=== PATIENT | female | born 1950 | race Caucasian/White ===

== ENCOUNTER 2017-05-06 14:31 | Inpatient (IN) | payer MEDICARE ==
[2017-05-06 16:17] LABS: Urine Bacteria Absent (Absent); Urine Bilirubin Negative (Negative); Urine Glucose Negative (Negative); Urine Nitrite Negative (Negative)
[2017-05-06] MEDS ORDERED: cefTRIAXone(*) 1 GM in NS 0.9% 50 ML* 50 ML IVPB ONE (16:48)
[2017-05-06] MEDS ORDERED: Azithromycin IV(*) 500 MG in NS 0.9% 250 ML* 250 ML IVPB ONE (16:49)
[2017-05-06] MEDS ORDERED: Iodixanol* (CONTRAST) 320 MG/ML 100 ML SDV IV ONE (17:17)
--- NOTE | 2017-05-06 17:43 | RAD ---
INDICATION: Fever and leukocytosis. COMPARISON: Comparison is made with a prior chest x-ray study from May 06, 2017 and a prior PET/CT study from April 16, 2016. TECHNIQUE: A CT scan of the chest was performed with intravenous contrast following intravenous injection of 80 ml of Visipaque 320 nonionic contrast. Contiguous axial sections were obtained from the lung apices through the lung bases. Images were reconstructed in the coronal and sagittal planes. FINDINGS: There is a large lobulated mass present in the right middle lobe measuring 3.9 x 6.0 x 5.3 cm in size. In addition there is a pleural-based mass present in the right lower lobe measuring 2.3 x 1.2 x 2.9 cm in size. There is a small infiltrate adjacent to the right middle lobe mass. The lungs are otherwise clear. No pleural effusion is seen. There is a large pretracheal lymph node measuring 1.0 x 1.4 cm in size. No other enlarged mediastinal or hilar lymph nodes are seen. The heart is within normal limits in size. No pericardial effusion is present. The thoracic aorta is normal in caliber. Images of the upper abdomen demonstrate an enlarged heterogeneous liver with a slightly nodular contour. There is a small hypodense lesion in the lateral aspect of the right hepatic lobe measuring 0.5 cm in size which is too small to characterize. No significant focal osseous abnormality is seen. IMPRESSION: 1. LARGE RIGHT MIDDLE LOBE MASS SUSPICIOUS FOR A PRIMARY LUNG CARCINOMA LESS LIKELY METASTATIC DISEASE. 2. SMALLER PLEURAL-BASED MASS IN THE RIGHT LOWER LOBE. 3. ENLARGED MEDIASTINAL LYMPH NODE. 4. ENLARGED HETEROGENEOUS LIVER WITH NODULAR CONTOUR. RECOMMEND DEDICATED CT IMAGING FOR FURTHER EVALUATION. 5. SMALL HYPODENSE HEPATIC LESION POSSIBLY REPRESENTING A CYST ALTHOUGH TOO SMALL TO CHARACTERIZE BY CT. THIS COULD BE FURTHER EVALUATED WITH A RIGHT UPPER QUADRANT ULTRASOUND.
[2017-05-06] MEDS ORDERED: Albuterol/Ipratropium NEB.SOL* Albuterol 2.5 MG/Ipratropium 0.5 MG 3 ML INH PRN (18:13)
[2017-05-06] MEDS: NS 0.9% 1000 ML* 1,000 ML IV SCH (18:33)
[2017-05-06] MEDS: Acetaminophen TAB* 325 MG PO PRN (18:33)
[2017-05-06] MEDS: oxyCODONE/Acetamin 5/325 MG* TAB PO PRN (20:00)
[2017-05-06] MEDS: oxyCODONE TAB* 5 MG TAB PO PRN (20:01)
[2017-05-06] MEDS ORDERED: Ketorolac INJ* 15 MG/ML 1 ML VIAL IM ONE (20:05)
[2017-05-06] MEDS: buPROPion TAB* 100 MG PO SCH (21:37)
[2017-05-06] MEDS: Atorvastatin* 40 MG TAB PO SCH (21:41)
[2017-05-06] MEDS: Heparin VIAL(*) 5000 UNITS/ML VIAL (FIVE THOUSAND) SUBCUT SCH (21:43)
--- NOTE | 2017-05-06 23:36 | HP ---
CC: Dr. Aceves; Dr. Sands; Dr. Saunders * HISTORY AND PHYSICAL: DATE OF ADMISSION: 05/06/17 PRIMARY CARE PROVIDER: Dr. Aceves. CHIEF COMPLAINT: Feeling unwell, sent by primary care provider. HISTORY OF PRESENT ILLNESS: Ms. Patrick Monique is a 66-year-old female with history of squamous cell tongue cancer, status post radiation and chemotherapy in January 2015 and 2015, who stated that she was treated for UTI 2 weeks ago with Bactrim. She stated that she felt weak and had developed urinary frequency, but no dysuria. She was seen by someone at [facility]gent [facility] and prescribed total course of 7 days of Bactrim. After 5 days of taking Bactrim, she felt more nauseated and redeveloped fevers. At that point, she stopped Bactrim and went to see a provider at Urgent Care again. Then, she was given 3 days' worth of ciprofloxacin. She saw Dr. Aceves on 05/05/17. Dr. Aceves prescribed her an additional course of ciprofloxacin and asked for the patient to get blood work and portable chest x-ray, which was obtained today. The patient noted to have marked leukocytosis with white blood cell count of 19,000. The patient's ESR is 120 and C-reactive protein of . She also was noted to have at least 4- cm right middle lobe mass on chest x-ray. Dr. Aceves's office sent the patient to the ED for further evaluation. Here, the patient's temperature was 102.2. She is slightly hyponatremic. She complains of no shortness of breath, but she noted that she has had dry cough for the past several weeks. Her appetite had been poor and due to intermittent nausea, she lost "a couple of pounds." She still complains of urinary frequency and her urine looks darker than usual but denies hematuria. She is going to be placed on admission with a diagnosis of pneumonia. PAST MEDICAL HISTORY: 1. History of squamous cell tongue cancer, status post radiation and chemotherapy in the years of 2014 and 2015. 2. History of acute renal failure after chemotherapy that resolved. 3. History of depression. 4. Gastroesophageal reflux disease. 5. Dyslipidemia. 6. Hypertension. 7. Hypothyroidism. 8. History of C4-C5 herniation, status post surgery in 2010. 9. History of PEG tube placement and reversal during her cancer therapy. 10. History of tubal ligation. MEDICATIONS: Include: 1. Lipitor 40 mg daily. 2. Toprol-XL 50 mg daily. 3. Levothyroxine 125 mcg daily. 4. Wellbutrin 200 mg b.i.d. 5. Cymbalta 90 mg daily. 6. Acetaminophen with oxycodone /325 one tablet up to 4 times a day p.r.n. 7. Omeprazole 20 mg daily. At home, she also was prescribed ciprofloxacin 500 mg twice a day that she had been taking for the past 4 days. ALLERGIES: Included BEE STINGS for which she uses EpiPen as needed. FAMILY HISTORY: Positive for brother with glioblastoma multiforme. SOCIAL HISTORY: The patient is retired. Her surrogate is her , Hema Monique. SOCIAL HISTORY: She denies any alcohol, tobacco, or drug use. She smokes marijuana. REVIEW OF SYSTEMS: Please see history of present illness. All the remaining 14 systems were reviewed with the patient and were otherwise negative. PHYSICAL EXAMINATION GENERAL: The patient is a very pleasant 66-year-old female, who is in no acute distress. Alert and oriented x3. VITAL SIGNS: Blood pressure 158/75, heart rate of 130 and regular, respiratory rate 18, oxygen saturation 95% on room air, temperature 102.2. HEENT: Head is atraumatic, normocephalic. Eyes: Pupils are equal, reactive to light and accommodation. Oropharynx clear. Mucosa dry. NECK: Supple. No JVD, no bruits bilaterally. RESPIRATORY: Clear to auscultation bilaterally. CARDIOVASCULAR: Regular rate and rhythm. No murmur. ABDOMEN: Soft, nontender. Bowel sounds present in all 4 quadrants. EXTREMITIES: There is no edema. Pulses +2 bilaterally. No clubbing or cyanosis. NEURO: Speech clear. Cranial nerves II through XII are grossly intact. Motor strength is 5/5 bilaterally. DIAGNOSTIC STUDIES/LAB DATA: Included sodium of 129, potassium of 4.7, chloride 91, carbon dioxide 28, BUN 12, creatinine 1.15 which is consistent with prior. The patient's liver function tests were unremarkable. Alkaline phosphatase is elevated to 110. C-reactive protein of 317. White blood count of 19.9, hemoglobin of 10.1, hematocrit of 31, and platelets of 477. Urinalysis showed cloudy urine, +2 protein, +1 ketones, +2 blood, +3 esterase, + 2 white blood cells, and +3 red blood cells, but no bacteria noted and no nitrites noted. The patient's urine cultures obtained on 05/05/[address] of chest obtained with IV contrast, impression: "Large right middle lobe mass suspicious for primary lung carcinoma, less likely metastatic disease. Smaller pleural based mass in the right lower lobe. Enlarged mediastinal lymph nodes. Enlarged heterogeneous liver with nodular contour to it. Recommended to get a CT imaging for further evaluation. Small hypodense hepatic lesion possibly representing cysts that are too small to characterize by CT. This could be further evaluated with a right upper quadrant ultrasound." ASSESSMENT AND PLAN: 1. In regards to the patient's fever and marked leukocytosis, at this point, the patient appears to have most likely postobstructive pneumonia from the right lower lobe. The patient is going to be continued on ceftriaxone and azithromycin started in the ED. Urine legionella and Strep pneumo antigens are going to be obtained as well as blood cultures. The patient is going to be aggressively hydrated. 2. In regards to the patient's slightly elevated creatinine, it appears to be the patient's baseline. 3. For her depression, her Wellbutrin as well as Cymbalta is going to be continued. 4. For the patient's hypertension, metoprolol is going to be continued. 5. For dyslipidemia, atorvastatin is going to be continued. 6. For DVT prophylaxis, the patient is going to be placed on heparin subcutaneously. 7. In regards to right middle lobe mass, I discussed this with Dr. Saunders, who recommended CT of abdomen and pelvis with 3-phase scan of the liver. Dr. Saunders will see the patient in consultation in the morning. 8. The patient's code status is full. TIME SPENT: Approximately 65 minutes was spent on admission of this patient. More than half that time was spent [id number] with the patient during the interview, physical exam, and counseling. [id number]/[facility] #: [id number] [facility]
[2017-05-07] MEDS: NS 0.9% 1000 ML* 1,000 ML IV SCH ×3 (02:21→18:55)
[2017-05-07] MEDS: Acetaminophen TAB* 325 MG PO PRN (04:07)
[2017-05-07] MEDS ORDERED: Acetaminophen SUPP* 650 MG SUPP PR PRN (04:12)
[2017-05-07] MEDS: Ondansetron INJ* 2 MG/ML VIAL IV SCH ×5 (04:31→20:46)
[2017-05-07 06:15] LABS: Hematocrit 27 % (35-47); Mean Corpuscular HGB Conc 33 g/dl (31-36); Mean Corpuscular Hemoglobin 28 pg (27-31); Mean Corpuscular Volume 85 fL (80-97); Mean Platelet Volume 6 um3 (7.4-10.4); Red Blood Count 3.21 10^6/ul (4.0-5.4); Red Cell Distribution Width 14 % (10.5-15)
[2017-05-07] MEDS: Levothyroxine TAB* 125 MCG TAB PO SCH (06:27)
[2017-05-07 06:29] LABS: BUN/Creatinine Ratio 10.5 (8-20); Calcium 9.2 mg/dL (8.6-10.3); EGFR African American 75.2 (>60); EGFR Non-African American 58.5 (>60); Potassium 3.6 mmol/L (3.5-5.0)
[2017-05-07] MEDS: Heparin VIAL(*) 5000 UNITS/ML VIAL (FIVE THOUSAND) SUBCUT SCH (07:16)
[2017-05-07] MEDS: Metoprolol Succinate XL TAB* 50 MG PO SCH ×2 (08:47→09:06)
[2017-05-07] MEDS: buPROPion TAB* 100 MG PO SCH ×2 (08:47→13:14)
[2017-05-07] MEDS: Omeprazole CAP* 20 MG PO SCH (08:47)
[2017-05-07] MEDS: oxyCODONE/Acetamin 5/325 MG* TAB PO PRN ×3 (08:47→18:18)
[2017-05-07] MEDS: oxyCODONE TAB* 5 MG TAB PO PRN ×3 (08:47→18:18)
[2017-05-07] MEDS ORDERED: DULoxetine DR CAP* 30 MG CAP.DR PO SCH (09:00)
--- NOTE | 2017-05-07 09:05 | PN ---
Progress Note - Progress Note Date of Service: 05/07/17 SOAP: Subjective: []Had been feeling well. Developed summer cold and then cough. Fevers started about 2 weeks [employer]. Up to 103. Seen at [facility] and thought to be UTI. Brief course of antibiotics X 2 with relief of symptoms for several days followed by fevers. PCP with CXR, mass. ER CT shows large area of consolidation RLL anteriorly, second 2 cm posterior area question of pleural of in lung. No mediastinal LAD, no bone, liver or adrenal lesions. Temp 103, labs consistent with acute pneumonia. Acetaminophen (Tylenol Tab*) 650 mg PO Q4H PRN PRN Reason: FEVER/PAIN Last Admin: 05/06/17 18:33 Dose: 650 mg Acetaminophen (Tylenol Supp*) 650 mg IA Q6H PRN PRN Reason: FEVER/PAIN Last Admin: 05/07/17 04:24 Dose: 650 mg Albuterol/Ipratropium (Duoneb (Albuterol 2.5 Mg/Ipratropium 0.5 Mg)) 1 neb INH RT.[id number] AWAKE PRN PRN Reason: sob/wheexing Atorvastatin Calcium (Lipitor*) 40 mg PO BEDTIME [facility] Last Admin: 05/06/17 21:41 Dose: 40 mg Bupropion HCl (Wellbutrin Tab*) 200 mg PO BID [facility] Last Admin: 05/07/17 08:47 Dose: 200 mg Duloxetine HCl (Cymbalta Cap*) 90 mg PO DAILY [facility] Last Admin: 05/07/17 08:47 Dose: 60 mg Heparin Sodium (Porcine) (Heparin Vial(*)) 5,000 units SUBCUT Q8HR [facility] Last Admin: 05/07/17 07:16 Dose: Not Given Sodium Chloride (Ns 0.9% 1000 Ml*) 1,000 mls @ 125 mls/hr IV PER RATE [facility] Last Admin: 05/07/17 02:21 Dose: 125 mls/hr Ceftriaxone Sodium 1,000 mg/ (Sodium Chloride) 50 mls @ 200 mls/hr IVPB Q24H [facility] Azithromycin 500 mg/ Sodium (Chloride) 250 mls @ 250 mls/hr IVPB Q24H [facility] Levothyroxine Sodium (Synthroid Tab*) 125 mcg PO 0600 [facility] Last Admin: 05/07/17 06:27 Dose: 125 mcg Metoprolol Succinate (Toprol Xl Tab*) 50 mg PO DAILY [facility] Last Admin: 05/07/17 08:47 Dose: 50 mg Omeprazole (Prilosec Cap*) 20 mg PO DAILY [facility] Last Admin: 05/07/17 08:47 Dose: 20 mg Ondansetron HCl (Zofran Inj*) 4 mg IV Q4H [facility] Last Admin: 05/07/17 08:48 Dose: 4 mg Oxycodone HCl (Roxycodone Tab*) 5 mg PO QID PRN PRN Reason: PAIN Last Admin: 05/07/17 08:47 Dose: 5 mg Oxycodone/Acetaminophen (Percocet 5/325 Tab*) 1 tab PO QID PRN PRN Reason: PAIN Last Admin: 05/07/17 08:47 Dose: 1 tab Objective: [] Vital Signs Temp Pulse Resp BP Pulse Ox 99.0 F 108 20 130/65 97 05/07/17 07:44 05/07/17 07:44 05/07/17 08:47 05/07/17 07:44 05/07/17 07:44 Tmax 103 HEENT - pale, no lesions, no supraclavicular LAD, No axillary LAD CT post, some e-a changes right lower lobe Abd NT, ND +BS and no HSM Ext no C/C/E WBC 19,000, Hgb 9.0 MCV 85 Assessment: []66 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 Had been disease free since that time. Now presents with acute pneumonia and question of post obstructive lesion. CT without other disease but the RLL lesion has mass like appearance. Ddx: consolidated pneumonia, underlying bronchial lesion causing obstruction. Discussed with the patient that we can not determine at this time if the has a recurrent or new cancer but will need to continue evaluation as or after we treat pneumonia. Plan: []1. Continue antibiotics and cover post obstructive disease. 2. Agree with follow up CT with 3 phase liver study. 3. If improving clinically on antibiotics will re-scan in 2 -3 weeks and consider bronchoscope. 4. Will continue to follow during hospitalization.
--- NOTE | 2017-05-07 13:13 | ED ---
Giuseppe Corral Nikita, scribed for Johann Rosales MD on 05/06/17 at 1521 . HPI Febrile Illness - HPI Summary HPI Summary: Pt is a 66 y/o F who presents to ED c/o fever. Reports her temperature has been between 102 and 103. Additionally c/o nonproductive cough. Sx aggravated and alleviated by nothing. Pt reports she started experiencing UTI sx consisting of urinary frequency and hematuria 2 weeks ago, so she went to urgent care and was prescribed Bactrim, which she took for 4 days and the UTI "responded to it" but she had to stop the Abx due to poor side effects. She returned to urgent care and was given an Rx for Cipro which she is still taking which is improving UTI sx, but she continues to experience fever. She was seen by her PCP, Dr. Aceves, yesterday who did a CXR, lab work and per pt, reported her urine was cloudy with RBC and WBC. - History of Current Complaint Chief Complaint: EDFever Time Seen by Provider: 05/06/17 15:06 Hx Obtained From: Patient Onset/Duration: Still Present Temperature: 103 F Current Severity: Mild Pain Intensity: 3 Pain Scale Used: 0-10 Numeric Aggravating Factors: Nothing Alleviating Factors: Nothing Associated Signs and Symptoms: Cough - nonproductive - Additional Pertinent History Primary Care Physician: [id number] - Allergy/Home Medications Allergies/Adverse Reactions: Allergies Allergy/AdvReac Type Severity Reaction Status Date / Time Bee Venom Allergy Anaphylatic Verified 01/05/16 17:38 Shock Home Medications: Home Medications Atorvastatin* [Lipitor*] 40 mg PO BEDTIME 05/06/17 [History Confirmed 05/06/17] Ciprofloxacin TAB* [Cipro 500 MG TAB*] 500 mg PO BID 05/06/17 [History Confirmed 05/06/17] DULoxetine DR CAP* [Cymbalta CAP*] 30 mg PO DAILY 05/06/17 [History Confirmed ] Epinephrine [Epipen 2-Juan Carlos] 0.3 mg IM ONCE PRN 05/06/17 [History Confirmed ] Levothyroxine TAB* [Synthroid TAB*] 125 mcg PO DAILY 05/06/17 [History Confirmed 05/06/17] Metoprolol Succinate XL TAB* [Toprol XL TAB*] 50 mg PO DAILY 05/06/17 [History Confirmed 05/06/17] oxyCODONE/Acetamin 10/325(NF) [Percocet 10/325 (NF)] 1 tab PO QID PRN 05/06/17 [ History Confirmed 05/06/17] DULoxetine DR SMITH* [Cymbalta CAP*] 60 mg PO DAILY 05/07/17 [History Confirmed ] PMH/Surg Hx/FS Hx/Imm Hx Endocrine/Hematology History: Reports: Hx Thyroid Disease - HYPOTHYROID Denies: Hx Diabetes Cardiovascular History: Reports: Hx Hypercholesterolemia, Hx Hypertension - ON MEDICATION FOR Denies: Hx Pacemaker/ICD Respiratory History: Denies: Hx Asthma GI History: Reports: Hx Gastroesophageal Reflux Disease, Other GI Disorders - ESOPHAGEAL SPASM HISTORY History: Denies: Hx Dialysis, Hx Renal Disease Musculoskeletal History: Reports: Hx Arthritis - HANDS, NECK, Other Musculoskeletal History - CERVICAL DISC DISEASE Sensory History: Reports: Hx Contacts or Glasses, Hx Hearing Aid Opthamlomology History: Reports: Hx Contacts or Glasses Neurological History: Reports: Hx Migraine - HISTORY OF Psychiatric History: Reports: Hx Anxiety - ON MEDICATION FOR, Hx Depression - ON MEDICATION FOR Denies: Hx Panic Disorder - Cancer History Cancer Type, Location and Year: tongue CA - Surgical History Surgery Procedure, Year, and Place: implanted port, PEG tube insertion Hx Anesthesia Reactions: No Infectious Disease History: Denies: Traveled Outside the [place] in Last 30 Days - Family History Known Family History: Positive: Hypertension - Father, Diabetes - Mother had age onset DM. - Social History Alcohol Use: None Substance Use Type: Reports: None Substance Use Comment - Amount & Last Used: MARIJUANA-SOME PER PATIENT Hx Tobacco Use: No Smoking Status (MU): Never Smoked Tobacco Review of Systems Positive: Fever Positive: frequency - urinary frequency - improved by Abx, hematuria - improved by Abx All Other Systems Reviewed And Are Negative: Yes Physical Exam Triage Information Reviewed: Yes Vital Signs On Initial Exam: Initial Vitals Temp Pulse Resp BP 99.6 F 135 20 116/70 05/06/17 14:35 05/06/17 14:35 05/06/17 14:35 05/06/17 14:35 Vital Signs Reviewed: Yes Appearance: Positive: Well-Appearing, No Pain Distress Skin: Positive: Warm, Skin Color Reflects Adequate Perfusion, Dry Head/Face: Positive: Normal Head/Face Inspection Eyes: Positive: Normal ENT: Positive: Normal ENT inspection Neck: Positive: Supple, Nontender Respiratory/Lung Sounds: Positive: Clear to Auscultation, Breath Sounds Present Cardiovascular: Positive: Tachycardia, Other - Hyperdynamic heart sounds Abdomen Description: Positive: Nontender, Soft Bowel Sounds: Positive: Present Musculoskeletal: Positive: Normal Neurological: Positive: Normal Psychiatric: Positive: Normal, Affect/Mood Appropriate Diagnostics - Vital Signs Vital Signs Temp Pulse Resp BP 05/06/17 14:35 99.6 F 135 20 116/70 - Laboratory Lab Results: Lab Results 05/06/17 Range/Units 15:58 Urine Color Yellow Urine Appearance Cloudy Urine pH 6.0 (5-9) Ur Specific Mullens 1.016 (1.010-1.030) Urine Protein 2+(100 mg/dl) H (Negative) Urine Ketones 1+ H (Negative) Urine Blood 2+ H (Negative) Urine Nitrate Negative (Negative) Urine Bilirubin Negative (Negative) Urine Urobilinogen Negative (Negative) Ur Leukocyte Esterase 3+ H (Negative) Urine WBC (Auto) 2+(11-20/hpf) H (Absent) Urine RBC (Auto) 3+(>10/hpf) H (Absent) Ur Squamous Epith Cells Present H (Absent) Urine Bacteria Absent (Absent) Urine Glucose Negative (Negative) Result Diagrams: 05/07/17 06:02 05/07/17 06:02 Lab Statement: Any lab studies that have been ordered have been reviewed, and results considered in the medical decision making process. - CT Chest CT CT Interpretation: Positive (See Comments) - 1. LARGE RIGHT MIDDLE LOBE MASS SUSPICIOUS FOR A PRIMARY LUNG CARCINOMA LESS LIKELY METASTATIC DISEASE. 2. SMALLER PLEURAL-BASED MASS IN THE RIGHT LOWER LOBE. 3. ENLARGED MEDIASTINAL LYMPH NODE. 4. ENLARGED HETEROGENEOUS LIVER WITH NODULAR CONTOUR. RECOMMEND DEDICATED CT IMAGING FOR FURTHER EVALUATION. 5. SMALL HYPODENSE HEPATIC LESION POSSIBLY REPRESENTING A CYST ALTHOUGH TOO SMALL TO CHARACTERIZE BY CT. THIS COULD BE FURTHER EVALUATED WITH A RIGHT UPPER QUADRANT ULTRASOUND. CT Interpretation Completed By: Radiologist Course/Dx - Course Course Of Treatment: I am conceerned that Ms. Patrick Monique has a post- obstructive pneumonia. She has been given IV antibiotics and will need to be admitted for further W/U. - Diagnoses Provider Diagnoses: Fever, Pneumonia - Provider Notifications Discussed Care Of Patient With: Lynn Mooney Time Discussed With Above Provider: 16:47 Instructed by Provider To: Other - Accepted pt for admission. Discharge - Discharge Plan Condition: Stable Disposition: ADMITTED TO [facility] The documentation as recorded by the Giuseppe siddiqi Nikita accurately reflects the service I personally performed and the decisions made by me, Johann Rosales MD.
[2017-05-07] MEDS: DULoxetine DR CAP* 30 MG CAP.DR PO SCH (13:14)
--- NOTE | 2017-05-07 14:47 | PN ---
Subjective Date of Service: 05/07/17 Interval History: Pt continued to be febrile at night. Now afebrile. Feels well, but had poor appetite, denies SOB, cough. Happy since as per pt DR. Saunders told pt that the lesion in her lung is likely pneumonia related Objective Active Medications: Acetaminophen (Tylenol Tab*) 650 mg PO Q4H PRN PRN Reason: FEVER/PAIN Last Admin: 05/06/17 18:33 Dose: 650 mg Acetaminophen (Tylenol Supp*) 650 mg [place] Q6H PRN PRN Reason: FEVER/PAIN Last Admin: 05/07/17 04:24 Dose: 650 mg Albuterol/Ipratropium (Duoneb (Albuterol 2.5 Mg/Ipratropium 0.5 Mg)) 1 neb INH [id number] AWAKE PRN PRN Reason: sob/wheexing Atorvastatin Calcium (Lipitor*) 40 mg PO BEDTIME [facility] Last Admin: 05/06/17 21:41 Dose: 40 mg Bupropion HCl (Wellbutrin Tab*) 200 mg PO BID@0900,1400 [facility] Last Admin: 05/07/17 13:14 Dose: 200 mg Duloxetine HCl (Cymbalta Cap*) 30 mg PO DAILY@1400 [facility] Last Admin: 05/07/17 13:14 Dose: 30 mg Duloxetine HCl (Cymbalta Cap*) 60 mg PO DAILY@0900 [facility] Ceftriaxone Sodium 1,000 mg/ (Sodium Chloride) 50 mls @ 200 mls/hr IVPB Q24H [facility] Azithromycin 500 mg/ Sodium (Chloride) 250 mls @ 250 mls/hr IVPB Q24H [facility] Sodium Chloride (Ns 0.9% 1000 Ml*) 1,000 mls @ 75 mls/hr IV PER RATE [facility] Levothyroxine Sodium (Synthroid Tab*) 125 mcg PO 0600 [facility] Last Admin: 05/07/17 06:27 Dose: 125 mcg Metoprolol Succinate (Toprol Xl Tab*) 50 mg PO BEDTIME [facility] Omeprazole (Prilosec Cap*) 20 mg PO DAILY [facility] Last Admin: 05/07/17 08:47 Dose: 20 mg Ondansetron HCl (Zofran Inj*) 4 mg IV Q4H [facility] Last Admin: 05/07/17 13:16 Dose: Not Given Oxycodone HCl (Roxycodone Tab*) 5 mg PO QID PRN PRN Reason: PAIN Last Admin: 05/07/17 13:14 Dose: 5 mg Oxycodone/Acetaminophen (Percocet 5/325 Tab*) 1 tab PO QID PRN PRN Reason: PAIN Last Admin: 05/07/17 13:15 Dose: 1 tab Vital Signs 05/06/17 05/06/17 05/06/17 17:00 18:14 18:15 Temperature 102.2 F 102.2 F Pulse Rate 102 131 131 Respiratory 18 18 Rate Blood Pressure 121/60 158/75 158/75 (mmHg) O2 Sat by Pulse 93 95 95 Oximetry 05/06/17 05/06/17 05/06/17 19:39 20:00 20:01 Temperature 102.5 F Pulse Rate 118 Respiratory 18 18 18 Rate Blood Pressure 134/64 (mmHg) O2 Sat by Pulse 97 Oximetry 05/06/17 05/06/17 05/06/17 22:00 22:01 23:51 Temperature 98.0 F Pulse Rate 94 Respiratory 20 20 16 Rate Blood Pressure 114/61 (mmHg) O2 Sat by Pulse 99 Oximetry 05/07/17 05/07/17 05/07/17 04:24 05:48 07:44 Temperature 102.9 F 100.6 F 99.0 F Pulse Rate 128 108 Respiratory 16 17 Rate Blood Pressure 143/73 130/65 (mmHg) O2 Sat by Pulse 93 97 Oximetry 05/07/17 05/07/17 05/07/17 08:47 09:32 10:26 Temperature Pulse Rate Respiratory 20 20 18 Rate Blood Pressure (mmHg) O2 Sat by Pulse Oximetry 05/07/17 05/07/17 05/07/17 10:58 13:14 13:15 Temperature 98.4 F Pulse Rate 99 Respiratory 17 18 20 Rate Blood Pressure 119/56 (mmHg) O2 Sat by Pulse 97 Oximetry 05/07/17 13:17 Temperature 99.6 F Pulse Rate Respiratory Rate Blood Pressure (mmHg) O2 Sat by Pulse Oximetry Oxygen Devices in Use Now: None Appearance: 66 yo F in NAD, aAOx3 Eyes: No Scleral Icterus, PERRLA Ears/Nose/Mouth/Throat: NL Teeth, Lips, Gums, Mucous Membranes Moist Neck: NL Appearance and Movements; NL JVP, Trachea Midline Respiratory: Symmetrical Chest Expansion and Respiratory Effort, Clear to Auscultation Cardiovascular: NL Sounds; No Murmurs; No JVD, RRR Abdominal: NL Sounds; No Tenderness; No Distention Lymphatic: No Cervical Adenopathy Extremities: No Edema, No Clubbing, Cyanosis Skin: No Rash or Ulcers, No Nodules or Sclerosis Neurological: Alert and Oriented x 3, NL Muscle Strength and Tone Result Diagrams: 05/07/17 06:02 05/07/17 06:02 Additional Lab and Data: Lab Results 05/06/17 Range/Units 15:58 Urine Color Yellow Urine Appearance Cloudy Urine pH 6.0 (5-9) Ur Specific [place] 1.016 (1.010-1.030) Urine Protein 2+(100 mg/dl) H (Negative) Urine Ketones 1+ H (Negative) Urine Blood 2+ H (Negative) Urine Nitrate Negative (Negative) Urine Bilirubin Negative (Negative) Urine Urobilinogen Negative (Negative) Ur Leukocyte Esterase 3+ H (Negative) Urine WBC (Auto) 2+(11-20/hpf) H (Absent) Urine RBC (Auto) 3+(>10/hpf) H (Absent) Ur Squamous Epith Cells Present H (Absent) Urine Bacteria Absent (Absent) Urine Glucose Negative (Negative) Microbiology and Other Data: Microbiology 05/06/17 20:12 Legionella Urinary Antigen - Final Urine Negative Legionella Streptococcus pneumoniae Ag Screen - Final Negative S. pneumo Antigen Assess/Plan/Problems-Billing Assessment: 66 yo F with h/o squamous cell ca of tongue, HTN, hypotyroidism, depression, dyslipidemia presents with fevers despite antibiotic tx and dry cough noted to have RML mass. - Patient Problems (1) Pneumonia Comment: ? post obstructive Cont Azithro/Ceftriaxone. WBC's still markedly elevated, but d/w pt that will allow for antibiotics to work over 24h, prior to deciding if coverage needs to be broadened. Legionella, Strep penumo antigens are neg. (2) Lung mass Comment: D/w oncology. It is unclear if the mass is only inflammatory, or if it could be malignancy. Cont to tx with Azithro/Ceftriaxone (3) Depression Comment: cont wellbutrin/cymbalta (4) Hypothyroidism Comment: cont home dose Synthroid (5) Dyslipidemia Comment: cont Lipitor (6) Hyponatremia Comment: continues despite IVF tx, may have an element of SIADH, but due to fever and pneumonia will cont to tx with IVF. (7) DVT prophylaxis Comment: heparin sc (8) Anemia Comment: normocytic, will check iron studies Status and Disposition: Inpatient
[2017-05-07] MEDS ORDERED: cefTRIAXone VIAL(*) 1,000 MG in NS 0.9% 50 ML* 50 ML IVPB SCH (17:00)
[2017-05-07] MEDS ORDERED: Iodixanol* (CONTRAST) 320 MG/ML 100 ML SDV IV ONE (18:04)
[2017-05-07] MEDS: Azithromycin IV(*) 500 MG in NS 0.9% 250 ML* 250 ML IVPB SCH (18:21)
--- NOTE | 2017-05-07 18:23 | RAD ---
CLINICAL HISTORY: Evaluate for metastatic disease COMPARISON: CT of the chest dated May 06, 2017 TECHNIQUE: Multiple contiguous axial CT images were obtained through the abdomen, both before and after the administration of nonionic intravenous contrast. Arterial phase images were obtained through the abdomen. Delayed images were obtained through the abdomen. Coronal and sagittal multiplanar reformations are submitted for review. Oral contrast was administered. FINDINGS: LUNG BASES: Again noted is a mass of the right lower lobe. There is a small right pleural effusion. LIVER: Again noted is low-attenuation lesion of the left lobe of liver. This is too small to definitively characterize. The liver is somewhat heterogeneous in attenuation. BILE DUCTS: There is mild intrahepatic biliary dilatation. The common duct is dilated up to 1.2 cm. GALLBLADDER: The gallbladder is normal, without pericholecystic inflammatory change. PANCREAS: The pancreas is normal, without mass or ductal dilatation. There is no appreciable pancreatic head mass SPLEEN: Normal in size and appearance. UPPER GI TRACT: Evaluation of the gastrointestinal tract is limited by incomplete gastric distention. The upper GI tract is unremarkable. SMALL BOWEL AND MESENTERY: The small bowel is normal in contour, course, and caliber. There is no obstruction or dilatation. COLON: The colon is normal in contour, course, caliber. There is no pericolonic inflammatory change. ADRENALS: Normal bilaterally. KIDNEYS: The kidneys are normal in shape, size, contour, and axis. There is no hydronephrosis or nephrolithiasis. BLADDER: The bladder is smooth in contour. PELVIC ORGANS: The uterus and adnexa are grossly normal for technique. AORTA: The aorta is normal. IVC: Unremarkable LYMPH NODES: There is no lymphadenopathy by size criteria. ABDOMINAL WALL: There is no evidence for abdominal wall hernia. BONES AND SOFT TISSUES: Degenerative changes are noted OTHER: None IMPRESSION: 1. THE LIVER IS HETEROGENEOUS. AGAIN NOTED ARE LOW ATTENUATION HEPATIC PARENCHYMAL LESIONS THAT ARE TOO SMALL TO DEFINITIVELY CHARACTERIZE BUT MAY REPRESENT SMALL CYSTS VERSUS SMALL MENINGIOMAS. CONSIDER CORRELATION WITH ULTRASOUND OF THE LIVER. 2. BILIARY DILATATION. THERE IS NO APPRECIABLE PANCREATIC HEAD MASS. 3. AGAIN NOTED IS A RIGHT LOWER LOBE MASS. THERE IS A SMALL RIGHT PLEURAL EFFUSION.
[2017-05-07] MEDS: Atorvastatin* 40 MG TAB PO SCH (20:45)
[2017-05-07] MEDS ORDERED: Metoprolol Succinate XL TAB* 50 MG PO SCH (21:00)
[2017-05-08] MEDS ORDERED: NS 0.9% 500 ML BAG* 500 ML IV ONE (00:37)
[2017-05-08] MEDS: Acetaminophen TAB* 325 MG PO PRN ×2 (02:05→23:51)
[2017-05-08] MEDS: NS 0.9% 1000 ML* 1,000 ML IV SCH ×2 (02:06→08:13)
[2017-05-08] MEDS: Ondansetron INJ* 2 MG/ML VIAL IV SCH ×6 (02:06→20:26)
[2017-05-08] MEDS: Levothyroxine TAB* 125 MCG TAB PO SCH (06:10)
[2017-05-08] MEDS: oxyCODONE TAB* 5 MG TAB PO PRN ×3 (06:15→14:36)
[2017-05-08] MEDS: oxyCODONE/Acetamin 5/325 MG* TAB PO PRN ×3 (06:16→14:38)
[2017-05-08 06:50] LABS: Corrected Retic Count 0.5 % (0.5-1.5); Hematocrit 26 % (35-47); Hemoglobin 8.4 g/dl (12.0-16.0); Immature Retic Fraction 0.38; Mean Corpuscular HGB Conc 33 g/dl (31-36); Mean Corpuscular Hemoglobin 28 pg (27-31); Mean Corpuscular Volume 85 fL (80-97); Mean Platelet Volume 7 um3 (7.4-10.4); Red Blood Count 3.04 10^6/ul (4.0-5.4); Red Cell Distribution Width 14 % (10.5-15); White Blood Count 18.5 10^3/ul (3.5-10.8)
[2017-05-08 06:58] LABS: Anion Gap 5 mmol/L (2-11); BUN/Creatinine Ratio 9.6 (8-20); Blood Urea Nitrogen 8 mg/dL (6-24); CO2 Carbon Dioxide 27 mmol/L (22-32); Calcium 8.9 mg/dL (8.6-10.3); Chloride 98 mmol/L (101-111); EGFR African American 87.9 (>60); EGFR Non-African American 68.4 (>60); Glucose 101 mg/dL (70-100); Potassium 3.4 mmol/L (3.5-5.0); Sodium 130 mmol/L (133-145)
[2017-05-08 06:59] LABS: Total Iron Binding Capacity 164 mcg/dL (250-450); Transferrin 117 mg/dL (203-362)
[2017-05-08 07:21] LABS: Ferritin 264.3 ng/mL (11-307)
[2017-05-08 07:25] LABS: Folate 15.44 ng/mL (>3.99); Vitamin B12 943 pg/mL (180-914)
[2017-05-08 07:30] LABS: Iron < 15 ug/dL (50-212)
[2017-05-08] MEDS: DULoxetine DR CAP* 60 MG CAP.DR PO SCH (08:12)
[2017-05-08] MEDS: buPROPion TAB* 100 MG PO SCH ×2 (08:12→13:31)
[2017-05-08] MEDS: Omeprazole CAP* 20 MG PO SCH (08:12)
--- NOTE | 2017-05-08 09:57 | PN ---
Progress Note - Progress Note Date of Service: 05/08/17 SOAP: Subjective: []Feeling a little better today. Coughing up more. Still some chest pain. Fever overnight but better. Acetaminophen (Tylenol Tab*) 650 mg PO Q4H PRN PRN Reason: FEVER/PAIN Last Admin: 05/08/17 02:05 Dose: 650 mg Acetaminophen (Tylenol Supp*) 650 mg [place] Q6H PRN PRN Reason: FEVER/PAIN Last Admin: 05/07/17 04:24 Dose: 650 mg Albuterol/Ipratropium (Duoneb (Albuterol 2.5 Mg/Ipratropium 0.5 Mg)) 1 neb INH [id number] AWAKE PRN PRN Reason: sob/wheexing Atorvastatin Calcium (Lipitor*) 40 mg PO BEDTIME [facility] Last Admin: 05/07/17 20:45 Dose: 40 mg Bupropion HCl (Wellbutrin Tab*) 200 mg PO BID@0900,1400 [facility] Last Admin: 05/08/17 08:12 Dose: 200 mg Duloxetine HCl (Cymbalta Cap*) 30 mg PO DAILY@1400 [facility] Last Admin: 05/07/17 13:14 Dose: 30 mg Duloxetine HCl (Cymbalta Cap*) 60 mg PO DAILY@0900 [facility] Last Admin: 05/08/17 08:12 Dose: 60 mg Azithromycin 500 mg/ Sodium (Chloride) 250 mls @ 250 mls/hr IVPB Q24H [facility] Last Admin: 05/07/17 18:21 Dose: 250 mls/hr Sodium Chloride (Ns 0.9% 1000 Ml*) 1,000 mls @ 75 mls/hr IV PER RATE [facility] Last Admin: 05/08/17 08:13 Dose: 75 mls/hr Ceftriaxone Sodium 1,000 mg/ (Sodium Chloride) 50 mls @ 200 mls/hr IVPB 1830 [facility] Levothyroxine Sodium (Synthroid Tab*) 125 mcg PO 0600 [facility] Last Admin: 05/08/17 06:10 Dose: 125 mcg Metoprolol Succinate (Toprol Xl Tab*) 25 mg PO BEDTIME [facility] Omeprazole (Prilosec Cap*) 20 mg PO DAILY [facility] Last Admin: 05/08/17 08:12 Dose: 20 mg Ondansetron HCl (Zofran Inj*) 4 mg IV Q4H [facility] Last Admin: 05/08/17 08:13 Dose: Not Given Oxycodone HCl (Roxycodone Tab*) 5 mg PO QID PRN PRN Reason: PAIN Last Admin: 05/08/17 06:15 Dose: 5 mg Oxycodone/Acetaminophen (Percocet 5/325 Tab*) 1 tab PO QID PRN PRN Reason: PAIN Last Admin: 05/08/17 06:16 Dose: 1 tab Objective: [] Vital Signs Temp Pulse Resp BP Pulse Ox 98.4 F 90 16 119/64 98 05/08/17 07:47 05/08/17 07:47 05/08/17 08:05 05/08/17 07:47 05/08/17 07:47 Tmax 102 HEENT - pale, no lesions, no supraclavicular LAD, No axillary LAD CT post, some e-a changes right lower lobe Abd NT, ND +BS and no HSM Ext no C/C/E WBC increased CT A/P - small liver lesions likely cysts. 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 Had been disease free since that time. Now presents with acute pneumonia and question of post obstructive lesion. CT without other disease but the RLL lesion has mass like appearance. CT A/P w/o disease Ddx: consolidated pneumonia, underlying bronchial lesion causing obstruction. Discussed with the patient that we can not determine at this time if the has a recurrent or new cancer but will need to continue evaluation as or after we treat pneumonia. Plan: []1. Continue antibiotics and cover post obstructive disease. 2. Agree with follow up CT with 3 phase liver study. 3. If improving clinically on antibiotics will re-scan in 2 -3 weeks and consider bronchoscope. 4. Will continue to follow during hospitalization.
[2017-05-08] MEDS ORDERED: NS 0.9% 1000 ML* 1,000 ML IV SCH (12:18)
--- NOTE | 2017-05-08 12:51 | PN ---
Subjective Date of Service: 05/08/17 Interval History: Feels much stronger today. Less cough, swallowed some sputum. Mild R chest pain. No new c/o. Objective Active Medications: Acetaminophen (Tylenol Tab*) 650 mg PO Q4H PRN PRN Reason: FEVER/PAIN Last Admin: 05/08/17 02:05 Dose: 650 mg Acetaminophen (Tylenol Supp*) 650 mg [place] Q6H PRN PRN Reason: FEVER/PAIN Last Admin: 05/07/17 04:24 Dose: 650 mg Albuterol/Ipratropium (Duoneb (Albuterol 2.5 Mg/Ipratropium 0.5 Mg)) 1 neb INH [id number] AWAKE PRN PRN Reason: sob/wheexing Atorvastatin Calcium (Lipitor*) 40 mg PO BEDTIME [facility] Last Admin: 05/07/17 20:45 Dose: 40 mg Bupropion HCl (Wellbutrin Tab*) 200 mg PO BID@0900,1400 [facility] Last Admin: 05/08/17 08:12 Dose: 200 mg Duloxetine HCl (Cymbalta Cap*) 30 mg PO DAILY@1400 [facility] Last Admin: 05/07/17 13:14 Dose: 30 mg Duloxetine HCl (Cymbalta Cap*) 60 mg PO DAILY@0900 [facility] Last Admin: 05/08/17 08:12 Dose: 60 mg Azithromycin 500 mg/ Sodium (Chloride) 250 mls @ 250 mls/hr IVPB Q24H [facility] Last Admin: 05/07/17 18:21 Dose: 250 mls/hr Ceftriaxone Sodium 1,000 mg/ (Sodium Chloride) 50 mls @ 200 mls/hr IVPB 1830 [facility] Sodium Chloride (Ns 0.9% 1000 Ml*) 1,000 mls @ 50 mls/hr IV PER RATE [facility] Levothyroxine Sodium (Synthroid Tab*) 125 mcg PO 0600 [facility] Last Admin: 05/08/17 06:10 Dose: 125 mcg Metoprolol Succinate (Toprol Xl Tab*) 25 mg PO BEDTIME [facility] Omeprazole (Prilosec Cap*) 20 mg PO DAILY [facility] Last Admin: 05/08/17 08:12 Dose: 20 mg Ondansetron HCl (Zofran Inj*) 4 mg IV Q4H [facility] Last Admin: 05/08/17 08:13 Dose: Not Given Oxycodone HCl (Roxycodone Tab*) 5 mg PO QID PRN PRN Reason: PAIN Last Admin: 05/08/17 10:34 Dose: 5 mg Oxycodone/Acetaminophen (Percocet 5/325 Tab*) 1 tab PO QID PRN PRN Reason: PAIN Last Admin: 05/08/17 10:34 Dose: 1 tab Vital Signs 05/07/17 05/07/17 05/07/17 13:14 13:15 13:17 Temperature 99.6 F Pulse Rate Respiratory 18 20 Rate Blood Pressure (mmHg) O2 Sat by Pulse Oximetry 05/07/17 05/07/17 05/07/17 15:15 15:21 18:18 Temperature 99.0 F Pulse Rate 109 Respiratory 20 16 18 Rate Blood Pressure 124/59 (mmHg) O2 Sat by Pulse 97 Oximetry 05/07/17 05/08/17 05/08/17 20:00 00:12 02:00 Temperature 99.7 F 102.4 F Pulse Rate 94 103 Respiratory 18 16 16 Rate Blood Pressure 97/44 128/67 (mmHg) O2 Sat by Pulse 99 99 Oximetry 05/08/17 05/08/17 05/08/17 06:15 06:16 06:19 Temperature 98.7 F Pulse Rate Respiratory 18 18 Rate Blood Pressure (mmHg) O2 Sat by Pulse Oximetry 05/08/17 05/08/17 05/08/17 07:47 08:00 08:04 Temperature 98.4 F Pulse Rate 90 Respiratory 18 18 16 Rate Blood Pressure 119/64 (mmHg) O2 Sat by Pulse 98 Oximetry 05/08/17 05/08/17 05/08/17 08:05 10:34 11:14 Temperature 98.1 F Pulse Rate 89 Respiratory 16 16 18 Rate Blood Pressure 122/59 (mmHg) O2 Sat by Pulse 95 Oximetry Oxygen Devices in Use Now: None Appearance: Alert, sitting up in bed. In good spirits. Looks comfortable. Eyes: No Scleral Icterus Ears/Nose/Mouth/Throat: Clear Oropharnyx, Mucous Membranes Moist Neck: NL Appearance and Movements; NL JVP, No Thyroid Enlargement, Masses Respiratory: Symmetrical Chest Expansion and Respiratory Effort, Clear to Auscultation, Clear to Percussion Cardiovascular: NL Sounds; No Murmurs; No JVD, RRR, No Edema, - Abdominal: NL Sounds; No Tenderness; No Distention, No Hepatosplenomegaly, - Extremities: No Edema, No Clubbing, Cyanosis, - Skin: No Rash or Ulcers, No Nodules or Sclerosis, - Neurological: Alert and Oriented x 3, NL Sensation Result Diagrams: 05/08/17 06:02 05/08/17 06:02 Additional Lab and Data: Lab Results 05/06/17 Range/Units 15:58 Urine Color Yellow Urine Appearance Cloudy Urine pH 6.0 (5-9) Ur Specific [place] 1.016 (1.010-1.030) Urine Protein 2+(100 mg/dl) H (Negative) Urine Ketones 1+ H (Negative) Urine Blood 2+ H (Negative) Urine Nitrate Negative (Negative) Urine Bilirubin Negative (Negative) Urine Urobilinogen Negative (Negative) Ur Leukocyte Esterase 3+ H (Negative) Urine WBC (Auto) 2+(11-20/hpf) H (Absent) Urine RBC (Auto) 3+(>10/hpf) H (Absent) Ur Squamous Epith Cells Present H (Absent) Urine Bacteria Absent (Absent) Urine Glucose Negative (Negative) Microbiology and Other Data: Microbiology 05/06/17 20:12 Legionella Urinary Antigen - Final Urine Negative Legionella Streptococcus pneumoniae Ag Screen - Final Negative S. pneumo Antigen Assess/Plan/Problems-Billing Assessment: 66 yo F with h/o squamous cell ca of tongue, HTN, hypotyroidism, depression, dyslipidemia presents with fevers despite antibiotic tx and dry cough noted to have RML mass. - Patient Problems (1) Pneumonia Current Visit: Yes Status: Acute Code(s): J18.9 - PNEUMONIA, UNSPECIFIED ORGANISM SNOMED Code(s): 716126789 Comment: ?? post obstructive Cont Azithro/Ceftriaxone. WBC's slowly decreasing. Subj better and fever seems better 05/08. Legionella, Strep penumo antigens are neg. (2) Hypothyroidism Current Visit: Yes Status: Acute Code(s): E03.9 - HYPOTHYROIDISM, UNSPECIFIED SNOMED Code(s): 34481453 Comment: TSH 2.91 02/18/17; cont home dose Synthroid (3) Hyponatremia Current Visit: Yes Status: Acute Code(s): E87.1 - HYPO-OSMOLALITY AND HYPONATREMIA SNOMED Code(s): 75372904 Comment: Improving, stop IVF. (4) Head and neck cancer Current Visit: Yes Status: Acute Code(s): C76.0 - MALIGNANT NEOPLASM OF HEAD , FACE AND NECK SNOMED Code(s): 715094921 Comment: Completed chemo and RT 2015, now ODIN. Status and Disposition: Inpatient
[2017-05-08] MEDS: DULoxetine DR CAP* 30 MG CAP.DR PO SCH (13:31)
[2017-05-08] MEDS ORDERED: Acetaminophen TAB* 325 MG PO PRN (15:45)
[2017-05-08] MEDS ORDERED: Acetaminophen TAB* 325 MG ONE (16:01)
[2017-05-08] MEDS: Azithromycin IV(*) 500 MG in NS 0.9% 250 ML* 250 ML IVPB SCH (17:50)
[2017-05-08] MEDS ORDERED: cefTRIAXone VIAL(*) 1,000 MG in NS 0.9% 50 ML* 50 ML IVPB SCH (18:30)
[2017-05-08] MEDS: Atorvastatin* 40 MG TAB PO SCH (20:24)
[2017-05-08] MEDS ORDERED: Metoprolol Succinate XL TAB* 50 MG PO SCH (21:00)
[2017-05-08] MEDS ORDERED: Azithromycin TAB* 250 MG PO SCH (21:00)
[2017-05-09] MEDS: Ondansetron INJ* 2 MG/ML VIAL IV SCH ×3 (00:44→08:06)
[2017-05-09] MEDS: Levothyroxine TAB* 125 MCG TAB PO SCH (06:02)
[2017-05-09] MEDS: oxyCODONE/Acetamin 5/325 MG* TAB PO PRN (06:16)
[2017-05-09] MEDS: oxyCODONE TAB* 5 MG TAB PO PRN (06:16)
[2017-05-09 07:21] VITALS: BP 136/67
[2017-05-09] MEDS: buPROPion TAB* 100 MG PO SCH (08:11)
[2017-05-09] MEDS: Omeprazole CAP* 20 MG PO SCH (08:11)
[2017-05-09] MEDS: DULoxetine DR CAP* 60 MG CAP.DR PO SCH (08:11)
--- NOTE | 2017-05-09 08:39 | PN ---
Subjective Date of Service: 05/09/17 Interval History: Feels good. Dry cough sometimes at night. Anxious to go home. Objective Active Medications: Acetaminophen (Tylenol Tab*) 650 mg PO Q4H PRN PRN Reason: FEVER/PAIN Last Admin: 05/08/17 23:51 Dose: 650 mg Acetaminophen (Tylenol Supp*) 650 mg [place] Q6H PRN PRN Reason: FEVER/PAIN Last Admin: 05/07/17 04:24 Dose: 650 mg Acetaminophen (Tylenol Tab*) 325 mg PO Q4H PRN PRN Reason: PAIN Last Admin: 05/08/17 16:03 Dose: 325 mg Albuterol/Ipratropium (Duoneb (Albuterol 2.5 Mg/Ipratropium 0.5 Mg)) 1 neb INH [id number] AWAKE PRN PRN Reason: sob/wheexing Atorvastatin Calcium (Lipitor*) 40 mg PO BEDTIME [facility] Last Admin: 05/08/17 20:24 Dose: 40 mg Azithromycin (Zithromax Tab*) 500 mg PO Q24H [facility] Last Admin: 05/08/17 20:25 Dose: 500 mg Bupropion HCl (Wellbutrin Tab*) 200 mg PO BID@0900,1400 [facility] Last Admin: 05/09/17 08:11 Dose: 200 mg Duloxetine HCl (Cymbalta Cap*) 30 mg PO DAILY@1400 [facility] Last Admin: 05/08/17 13:31 Dose: 30 mg Duloxetine HCl (Cymbalta Cap*) 60 mg PO DAILY@0900 [facility] Last Admin: 05/09/17 08:11 Dose: 60 mg Ceftriaxone Sodium 1,000 mg/ (Sodium Chloride) 50 mls @ 200 mls/hr IVPB 1830 [facility] Last Admin: 05/08/17 17:12 Dose: 200 mls/hr Levothyroxine Sodium (Synthroid Tab*) 125 mcg PO 0600 [facility] Last Admin: 05/09/17 06:02 Dose: 125 mcg Metoprolol Succinate (Toprol Xl Tab*) 25 mg PO BEDTIME [facility] Last Admin: 05/08/17 20:24 Dose: 25 mg Omeprazole (Prilosec Cap*) 20 mg PO DAILY [facility] Last Admin: 05/09/17 08:11 Dose: 20 mg Ondansetron HCl (Zofran Inj*) 4 mg IV Q4H [facility] Last Admin: 05/09/17 08:06 Dose: Not Given Oxycodone HCl (Roxycodone Tab*) 5 mg PO QID PRN PRN Reason: PAIN Last Admin: 05/09/17 06:16 Dose: 5 mg Oxycodone/Acetaminophen (Percocet 5/325 Tab*) 1 tab PO QID PRN PRN Reason: PAIN Last Admin: 05/09/17 06:16 Dose: 1 tab Vital Signs 05/08/17 05/08/17 05/08/17 10:34 11:14 12:34 Temperature 98.1 F Pulse Rate 89 Respiratory 16 18 16 Rate Blood Pressure 122/59 (mmHg) O2 Sat by Pulse 95 Oximetry 05/08/17 05/08/17 05/08/17 14:36 14:38 15:46 Temperature 101.1 F Pulse Rate 91 Respiratory 20 18 18 Rate Blood Pressure 110/68 (mmHg) O2 Sat by Pulse 94 Oximetry 05/08/17 05/08/17 05/08/17 19:54 20:00 22:15 Temperature 98.5 F Pulse Rate 96 Respiratory 16 18 16 Rate Blood Pressure 131/66 (mmHg) O2 Sat by Pulse 97 Oximetry 05/08/17 05/09/17 05/09/17 23:40 05:03 06:16 Temperature 100.8 F 98.1 F Pulse Rate 104 92 Respiratory 16 16 18 Rate Blood Pressure 126/65 123/70 (mmHg) O2 Sat by Pulse 96 100 Oximetry 05/09/17 07:21 Temperature 99.1 F Pulse Rate 88 Respiratory 21 Rate Blood Pressure 136/67 (mmHg) O2 Sat by Pulse 92 Oximetry Oxygen Devices in Use Now: None Appearance: Alert, sitting up in bed. In good spirits. Looks comfortable, except frequent dry cough. Eyes: No Scleral Icterus Neck: NL Appearance and Movements; NL JVP, No Thyroid Enlargement, Masses Respiratory: Symmetrical Chest Expansion and Respiratory Effort, Clear to Auscultation, Clear to Percussion Cardiovascular: NL Sounds; No Murmurs; No JVD, RRR, No Edema, - Extremities: No Edema, No Clubbing, Cyanosis, - Skin: No Rash or Ulcers, No Nodules or Sclerosis, - Neurological: Alert and Oriented x 3, NL Sensation Result Diagrams: 05/08/17 06:02 05/08/17 06:02 Additional Lab and Data: Lab Results 05/06/17 Range/Units 15:58 Urine Color Yellow Urine Appearance Cloudy Urine pH 6.0 (5-9) Ur Specific [place] 1.016 (1.010-1.030) Urine Protein 2+(100 mg/dl) H (Negative) Urine Ketones 1+ H (Negative) Urine Blood 2+ H (Negative) Urine Nitrate Negative (Negative) Urine Bilirubin Negative (Negative) Urine Urobilinogen Negative (Negative) Ur Leukocyte Esterase 3+ H (Negative) Urine WBC (Auto) 2+(11-20/hpf) H (Absent) Urine RBC (Auto) 3+(>10/hpf) H (Absent) Ur Squamous Epith Cells Present H (Absent) Urine Bacteria Absent (Absent) Urine Glucose Negative (Negative) Microbiology and Other Data: Microbiology 05/06/17 20:12 Legionella Urinary Antigen - Final Urine Negative Legionella Streptococcus pneumoniae Ag Screen - Final Negative S. pneumo Antigen Assess/Plan/Problems-Billing Assessment: 66 yo F with h/o squamous cell ca of tongue, HTN, hypotyroidism, depression, dyslipidemia presents with fevers despite antibiotic tx and dry cough noted to have RML mass. - Patient Problems (1) Pneumonia Current Visit: Yes Status: Acute Code(s): J18.9 - PNEUMONIA, UNSPECIFIED ORGANISM SNOMED Code(s): 959107639 Comment: ?? post obstructive Complete tx wih Azithro/Cefuroxime at home. Benzonatate for cough PRN. Dr. Sands to fup in a few weeks. (2) Hypothyroidism Current Visit: Yes Status: Acute Code(s): E03.9 - HYPOTHYROIDISM, UNSPECIFIED SNOMED Code(s): 45952944 Comment: TSH 2.91 02/18/17; cont home dose Synthroid (3) Hyponatremia Current Visit: Yes Status: Acute Code(s): E87.1 - HYPO-OSMOLALITY AND HYPONATREMIA SNOMED Code(s): 63551573 Comment: Improving, stop IVF. (4) Head and neck cancer Current Visit: Yes Status: Acute Code(s): C76.0 - MALIGNANT NEOPLASM OF HEAD , FACE AND NECK SNOMED Code(s): 557918685 Comment: Completed chemo and RT 2016, now ODIN. (5) HTN (hypertension) Current Visit: Yes Status: Acute Code(s): I10 - ESSENTIAL (PRIMARY) HYPERTENSION SNOMED Code(s): 37831613 Comment: Rx new dose metoprolol XL transmitted. Status and Disposition: Discharge now. Fup Wicho Rodriguez.
--- NOTE | 2017-05-09 08:54 | PN ---
Progress Note - Progress Note Date of Service: 05/09/17 Note: Time spent on discharge 45 minutes.
[2017-05-09] MEDS ORDERED: Benzonatate CAP* 100 MG PO SCH (09:00)
--- NOTE | 2017-05-09 10:55 | DS ---
CC: Dr. Workman; Dr. Sands * DATE OF ADMISSION: 05/06/2017. DATE OF DISCHARGE: 05/09/2017. HISTORY OF PRESENT ILLNESS: This 66-year-old woman presented with a sense of malaise. She also had a cough. She had been treated for urinary tract infection with Trimethoprim/Sulfamethoxazole as an outpatient. She took this for five days, but was having fevers. She say Dr. Workman on May 05 to prescribe additional Ciprofloxacin. I also ordered a chest x-ray which showed an infiltrate in the right lung. Her white blood count was 19,000 and she was admitted. The rest of the history is detailed in the admission note. The patient had a CT of the abdomen and pelvis to look for metastatic disease. This was unremarkable. CT scan of the chest showed what was described as a large right middle lobe mass. There was a 1.0 x 1.4 cm pretracheal node reported. She was seen by Dr. Saunders who felt that this was more likely pneumonia than a neoplasm. The patient was treated with Azithromycin and Ceftriaxone. She responded well. Her malaise resolved completely. She reported feeling much better. Her temperature did gradually come down. I suspect it will continue to fall over three days. On May 08, her maximum temperature was 101.1. I note her highest temperature here was 102.9 on May 07. Her white blood count was slowly falling as well. It fell from 19.9 to 19.0 to 18.5 on May 08. Her Metoprolol dose was decreased from 50 to 25. Her blood pressure on the day of discharge was 136/67, heart rate 88. Urine for strep pneumonia antigen and legionella antigens were both negative. One set of blood cultures was no growth on day two. Urine culture was no growth on May 06. FINAL DIAGNOSES: 1. Right lung pneumonia. 2. Hypothyroidism. 3. Hyponatremia. 4. History of head and neck cancer. 5. Hypertension. DISCHARGE MEDICATIONS: 1. Metoprolol Succinate 25 mg at bedtime. 2. Acetaminophen 650 mg every 4 hours prn. 3. Azithromycin 250 mg at bedtime for [address] 60 mg daily. 5. Cefuroxime 500 mg b.i.d. for 6 days. 6. Benzonatate 200 mg t.i.d. prn. 7. Omeprazole 20 mg daily. 8. Bupropion 200 mg b.i.d. 9. Citalopram 40 mg daily. 10. Epinephrine 0.3 mg IM prn. 11. Atorvastatin 40 mg at bedtime. 12. Levothyroxine 125 mg daily. 13. Duloxetine 30 mg daily and 60 mg daily as prescribed. 14. Oxycodone/acetaminophen 10/325 one q.i.d. prn. [id number] #: [id number]
--- NOTE | 2017-05-10 10:28 | PN ---
Progress Note - Progress Note Date of Service: 05/10/17 Note: Patient phoned me today. She took 1 cefuroxime yesterday and 1 this AM and had emesis about 20-30 minutes after each dose. Rx doxycycline 100 mg bid x 7 days. Pt to dispose of the remining cefuroxime.
== END 2017-05-09 09:45 | disposition home or self-care (01) | DRG 194 ==
LOC: ED 14:31 → MED 16:55
PROVIDERS: ADMIT Internal Medicine; ATTEND Internal Medicine
DX: J18.9 Pneumonia, unspecified organism (principal); E87.1 Hypo-osmolality and hyponatremia; I10 Essential (primary) hypertension; E03.9 Hypothyroidism, unspecified; K21.9 Gastro-esophageal reflux disease without esophagitis; E78.5 Hyperlipidemia, unspecified; F32.9 Major depressive disorder, single episode, unspecified; Z91.030 Bee allergy status; Z85.810 Personal history of malignant neoplasm of tongue; Z79.899 Other long term (current) drug therapy
CPT/HCPCS: 36415; 71020; 71260; 74178; 80048; 80053; 81003; 81015; 82607; 82728; 82746; 83540; 83550; 85025; 85045; 85652; 86140; 86618; 87040; 87086; 87899; 99232; A9270-GY; J0456; J0696; J1644; J1885; J2405; Q9967

== ENCOUNTER 2018-07-20 17:48 | Emergency (ER) | payer BC, MEDICARE ==
[2018-07-20 18:03] VITALS: BP 125/98
== END 2018-07-20 19:12 | disposition left against medical advice (07) ==
LOC: ED 17:48
DX: R10.9 Unspecified abdominal pain (principal); Z53.21 Procedure and treatment not carried out due to patient leaving prior to being seen by health care provider